=== PATIENT | female | born 1945 | race Hispanic/Latino ===

== ENCOUNTER 2016-04-23 08:55 | Day surgery (SDC) | payer MEDICARE ==
[2016-04-22 14:14] LABS: Hematocrit 21.6 % (30.3-42.9); Hemoglobin 7.4 gm/dl (10.1-14.3)
[~2016-04-23 08:55] MED LIST: BENADRYL PO ONE; FLUSH HEPARIN IV ONE; NACL 0.9% 250ML 250 ML IV ONE; TYLENOL PO ONE
[2016-04-23 12:58] VITALS: BP 153/63
[2016-04-23] MEDS ORDERED: FLUSH HEPARIN IV ONE (13:14)
[2016-04-23] MEDS ORDERED: LASIX ONE (13:22)
[2016-04-23] MEDS ORDERED: LASIX IV ONE (13:23)
== END 2016-04-23 13:47 | disposition home or self-care (01) ==
LOC: OPU 08:55
PROVIDERS: ATTEND Internal Medicine Hematology & Oncology
DX: D64.9 Anemia, unspecified (principal)
CPT/HCPCS: 36415; 36430; 85014; 85018; 86850; 86900; 86901; 86920; 96374; J1642; J1940; J7050; P9040

== ENCOUNTER 2016-05-16 08:24 | Outpatient (CLI) | payer MEDICARE ==
--- NOTE | 2016-05-17 11:01 | Cat Scan Report ---
CT ABDOMEN AND PELVIS WITH CONTRAST: 05/16/16 08:24:00 CLINICAL: Malignant neoplasm pancreas. COMPARISON: None. TECHNIQUE: Volumetric acquisition and 1.25 millimeter scan reconstructions after the uneventful intravenous injection of 100 cc Omnipaque 300. Consent was obtained prior to the administration of contrast. Oral contrast was also given. FINDINGS: Abdomen: Normal liver size, contour and density. 2 small right posterior hepatic cysts with the largest measuring 1.4 cm. No liver mass.The gallbladder is normally distended with normal wall thickness and no evidence of cholelithiasis. Moderate dilatation of intrahepatic and extra hepatic bile ducts. There is a stent in the distal CBD and the CBD is dilated proximal to the stent. The pancreas is markedly atrophic except for the head which is heterogeneously dense and enlarged. Abnormal hypodensity in the uncinate process and the pancreatic head is suspicious for tumor. The uncinate hypodensity measures 2.3 x 1.4 cm. The pancreatic duct is dilated and measures 7 mm diameter. No peripancreatic lymphadenopathy. No ascites. The aorta and inferior vena cava are unremarkable. Normal adrenal glands and kidneys. The renal collecting systems and ureters are nondilated. The small bowel is normal. Normal ascending, transverse and descending colon. The appendix is normal. Pelvis: Normal urinary bladder.Absence of uterus and normal vaginal cuff. Ovaries are not identified. Normal rectum and sigmoid colon.No adnexal mass or free fluid. Bone windows demonstrate no bone lesion. IMPRESSION: 1. Pancreatic head enlargement suspicious for tumor with marked atrophy of the body and tail of the pancreas. An uncinate mass measures 2.3 x 1.4 cm. 2. Biliary dilatation with a CBD stent. 3. Benign hepatic cysts and no evidence of hepatic metastasis. 4. No evidence of taina metastasis. 5. Normal pelvis status post hysterectomy.
== END 2016-05-16 08:25 | disposition home or self-care (01) ==
LOC: SPVIMAG 08:24
PROVIDERS: ATTEND Internal Medicine Hematology & Oncology
DX: C25.9 Malignant neoplasm of pancreas, unspecified (principal); K76.89 Other specified diseases of liver; K82.8 Other specified diseases of gallbladder; K86.89 Other specified diseases of pancreas; Z90.710 Acquired absence of both cervix and uterus
CPT/HCPCS: 74177; Q9967

== ENCOUNTER 2016-06-27 08:48 | Outpatient (CLI) | payer MEDICARE, OTHER ==
--- NOTE | 2016-06-27 11:02 | Cat Scan Report ---
CT ABDOMEN AND PELVIS WITHOUT CONTRAST: 06/27/16 08:48:00 CLINICAL:Abdominal pain. Known pancreatic cancer. COMPARISON: 05/16/16 TECHNIQUE: Volumetric acquisition and 1.25 millimeter scan reconstructions from the lung bases to the through the iliac crest. The study was performed without oral contrast. FINDINGS: Abdomen:The lung bases are clear. Normal liver size, contour and density. No liver mass. Stable moderate intrahepatic and extra hepatic biliary dilatation with the CBD measuring 12 mm in diameter. CBD stent is unchanged in position. The distal aspect of the stent is in the third portion of the duodenum. Stable moderate distention of the gallbladder with wall measuring 3 mm in thickness. New mild pericholecystic stranding medial to the gallbladder. There is a questionable radiolucent calculus or calculi layering in the dependent portion of the gallbladder. Stable enlargement of the pancreatic head , enlargement of the pancreatic duct and atrophy of the pancreatic body and tail. The right kidney measures 8.8 cm in length and the left kidney measures 8.2 cm in length. Normal nondilated renal collecting systems and ureters. No urinary calculus identified. A 5 mm right lower pole hyperdensity in the medulla may be a tiny hemorrhagic cyst. Normal stomach, duodenum and spleen. Normal adrenal glands. The aorta and inferior vena cava are unremarkable. No ascites and no pneumoperitoneum. The small bowel and colon are normal. Mild barium in the appendix described the previous CT without contrast. No lymphadenopathy. Pelvis: Normal bladder and rectum.Absence of the uterus a normal vaginal cuff. IMPRESSION: 1. No urinary calculus. 2. Probable 5 mm hemorrhagic cyst of the lower pole the right kidney. 3. Gallbladder sludge versus cholelithiasis and pericholecystic stranding of uncertain significance. 4. Stable biliary dilatation with a CBD stent. 5. Pancreatic head mass and atrophy of the pancreatic tail and body. 6. Status post hysterectomy.
== END 2016-06-27 08:49 | disposition home or self-care (01) ==
LOC: SPVIMAG 08:48
PROVIDERS: ATTEND Internal Medicine Hematology & Oncology
DX: C25.9 Malignant neoplasm of pancreas, unspecified (principal); N28.1 Cyst of kidney, acquired; K82.8 Other specified diseases of gallbladder; K86.89 Other specified diseases of pancreas; Z90.710 Acquired absence of both cervix and uterus
CPT/HCPCS: 74176

== ENCOUNTER 2016-07-19 09:56 | Outpatient (CLI) | payer MEDICARE ==
--- NOTE | 2016-07-19 13:42 | XRay Report ---
Chest 2 views: Next History: Pneumonia. Findings: Normal cardiomediastinal silhouette. Trachea is midline. Stable right Port-A-Cath. Surgical clips left axilla. No acute consolidation or pleural effusion. Impression: No acute cardiopulmonary findings.
== END 2016-07-19 09:57 | disposition home or self-care (01) ==
LOC: SPVIMAG 09:56
PROVIDERS: ATTEND Internal Medicine
DX: J18.9 Pneumonia, unspecified organism (principal)
CPT/HCPCS: 71020

== ENCOUNTER 2016-09-19 09:48 | Outpatient (CLI) | payer MEDICARE ==
--- NOTE | 2016-09-20 14:40 | Cat Scan Report ---
CT CHEST, ABDOMEN AND PELVIS WITH CONTRAST: 09/19/16 09:48:00 CLINICAL: Pancreatic cancer. COMPARISON: 06/27/16 and 05/16/16 CT abdomen and pelvis TECHNIQUE: Volumetric acquisition and 1.25 millimeter scan reconstructions after the uneventful intravenous injection of 100 cc of Omnipaque 300. Consent was obtained prior to the administration of the contrast. Water soluble oral contrast was given. FINDINGS: Chest: A slightly irregular right upper lobe peripheral pleural based nodule measures 1.0 x 0.9 cm and has central cavitation. No other lung nodule or mass identified. Normal aorta, heart and pulmonary arteries. A right [id number] tip is in the distal SVC. Normal esophagus and trachea. No mediastinal or hilar lymphadenopathy.No axillary or supraclavicular lymphadenopathy. Abdomen: Normal liver size, contour and overall density. No liver masses. A 1.5 cm right hepatic cyst and a 6 mm slightly more inferior right hepatic cyst. Moderate dilatation of intrahepatic bile ducts. The gallbladder is moderately distended and normal. The common bile duct is dilated and measures 10.0 mm. Slightly decreased size of the pancreatic head and uncinate process. Uncinate mass measures approximately 1.7 x 1.2 cm compared to 2.3 x 1.4 cm on the last exam. A CBD stent is unchanged in position. Stable pancreatic atrophy with dilatation of the main pancreatic duct. Normal stomach, duodenum, spleen. Normal kidneys and adrenal glands. Normal aorta and inferior vena cava. No lymphadenopathy.No ascites.Normal small bowel. Normal ascending, transverse and descending colon. Normal appendix. Pelvis: Normal urinary bladder and rectum.Absence of the uterus and normal vaginal cuff. Ovaries are not identified. No adnexal mass or free fluid.. Bone windows demonstrate no suspicious bone lesion. IMPRESSION:1. A slightly smaller uncinate process mass. 2. A 1 cm right upper lobe peripheral cavitating lung nodule is suspicious for pulmonary metastasis. 3. No evidence of taina or hepatic metastasis.
== END 2016-09-19 09:49 | disposition home or self-care (01) ==
LOC: SPVIMAG 09:48
PROVIDERS: ATTEND Internal Medicine Hematology & Oncology
DX: C25.9 Malignant neoplasm of pancreas, unspecified (principal); R91.1 Solitary pulmonary nodule; K76.89 Other specified diseases of liver; K82.8 Other specified diseases of gallbladder; K86.89 Other specified diseases of pancreas; I10 Essential (primary) hypertension; E78.00 Pure hypercholesterolemia, unspecified; D64.9 Anemia, unspecified; Z90.710 Acquired absence of both cervix and uterus
CPT/HCPCS: 71260; 74177; Q9967